=== PATIENT | male | born 1970 | race Caucasian/White ===

== ENCOUNTER 2017-02-09 08:18 | Day surgery (SDC) | payer BC ==
[~2017-02-09] VITALS: Ht 172.7 cm; Wt 113.4 kg
[2017-02-09] VITALS (7 sets, daily range): BP systolic 142–175; BP diastolic 84–109
[~2017-02-09 08:18] MED LIST: NORVASC2.5 MG PO
== END 2017-02-09 18:11 | disposition home or self-care (01) ==
LOC: SDC 08:18
DX: J34.2 Deviated nasal septum (principal); J34.3 Hypertrophy of nasal turbinates; G47.33 Obstructive sleep apnea (adult) (pediatric); K21.9 Gastro-esophageal reflux disease without esophagitis; I10 Essential (primary) hypertension; E66.9 Obesity, unspecified; Z68.38 Body mass index [BMI] 38.0-38.9, adult; Z87.891 Personal history of nicotine dependence; Z83.3 Family history of diabetes mellitus
CPT/HCPCS: J0330; J0360; J1100; J1170; J2405; J3010

== ENCOUNTER 2017-11-11 05:37 | Emergency (ER) | payer OTHER, BC ==
[~2017-11-11] VITALS: Ht 172.7 cm; Wt 113.6 kg
[2017-11-11 08:01] VITALS: BP 162/111
== END 2017-11-11 08:04 | disposition home or self-care (01) ==
LOC: EME 05:37
PROC: 0HQ0XZZ Repair Scalp Skin, External Approach (ICD-10-PCS; principal; 2017-11-11)
DX: S01.01XA Laceration without foreign body of scalp, initial encounter (principal); W17.89XA Other fall from one level to another, initial encounter; Y92.481 Parking lot as the place of occurrence of the external cause; Y99.0 Civilian activity done for income or pay
CPT/HCPCS: 70450; 72125; 99281; 99284